=== PATIENT | female | born 1980 | race Caucasian/White ===

== ENCOUNTER → 2024-05-31 11:45 | Outpatient (REF) | payer BC, SELFPAY | LOC: HWWDC 11:45 | PROVIDERS: ATTENDING PHYSICIAN Internal Medicine; REFERRING PHYSICIAN Nurse Practitioner Adult Health | DX: Z12.31 Encounter for screening mammogram for malignant neoplasm of breast (principal) | CPT/HCPCS: 77063; 77067 ==

== ENCOUNTER 2024-07-28 06:31 | Day surgery (SDC) | payer BC, SELFPAY | END 2024-07-28 15:40 | disposition home or self-care (01) | LOC: GI 06:31 | PROVIDERS: ATTENDING PHYSICIAN Internal Medicine Gastroenterology | DX: Z12.11 Encounter for screening for malignant neoplasm of colon (principal); K64.0 First degree hemorrhoids; D12.2 Benign neoplasm of ascending colon | CPT/HCPCS: 45385; 45380; 88305 ==

== ENCOUNTER → 2024-11-10 08:48 | Outpatient (REF) | payer BC, SELFPAY | LOC: WDC 08:48 | PROVIDERS: ATTENDING PHYSICIAN Internal Medicine | DX: R92.30 Dense breasts, unspecified (principal) | CPT/HCPCS: 76641 ==